=== PATIENT | male | born 2005 | race Two or more races ===

== ENCOUNTER 2025-05-26 19:38 | Emergency (ER) | payer OTHER, MEDICAID ==
[~2025-05-26] VITALS: Ht 175.3 cm; Wt 68.0 kg
[2025-05-26 19:41] VITALS: O2SAT 98
[2025-05-26] MEDS: IBUPROFEN 600MG TABLET PO ONE (23:11)
[2025-05-27 01:30] VITALS: BP 108/54; PULSE 53; RESP 16; TEMP 36.7; O2SAT 100
[2025-05-27] MEDS ORDERED: IBUP-2028 MT (01:32)
[2025-05-27] MEDS ORDERED: BO1 TP (01:35)
== END 2025-05-27 01:58 | disposition home or self-care (01) ==
LOC: ER 22:15
DX: S06.0XAA Concussion with loss of consciousness status unknown, initial encounter (principal); V43.52XA Car driver injured in collision with other type car in traffic accident, initial encounter; Y93.89 Activity, other specified; Y92.89 Other specified places as the place of occurrence of the external cause; Y99.8 Other external cause status
CPT/HCPCS: 73130; 99285